=== PATIENT | female | born 1935 | race Caucasian/White ===

== ENCOUNTER 2016-10-02 08:43 | Emergency (ER) | payer MEDICARE, BC ==
[2016-10-02] MEDS ORDERED: Sodium Chloride 0.9% 2.5 ML Syringe FLUSH PRN (08:51)
[2016-10-02] MEDS ORDERED: Sodium Chloride 0.9% 10 ML Syringe FLUSH PRN (08:51)
[2016-10-02] MEDS ORDERED: Insulin Regular, Human 100 Units/ML 10 ML Vial ONE (09:13)
--- NOTE | 2016-10-02 09:16 | EDM.PDOC ---
ED HPI GENERAL MEDICAL PROBLEM - General Chief Complaint: Neuro Symptoms/Deficits Stated Complaint: UNK Time Seen by Provider: 10/02/16 08:43 - History of Present Illness INITIAL COMMENTS - FREE TEXT/NARRATIVE: HISTORY AND PHYSICAL: History of present illness: Patient is an 81-year-old female with a known history of hypertension hypercholesterolemia end-stage renal disease pacemaker and A. fib who presents from renal dialysis after having a prolonged episode of altered mental status. According to the dialysis nurse when she presented to dialysis she was her usual self and they started her run. She's been having issues with her left forearm fistula so they were not able to complete her run and as they were de- accessing her she seemed to have a syncopal event. According to the dialysis nurse this is not unusual for her but usually bounces back relatively quickly. We observed her for 10 minutes and she did not seem to be more responsive so they brought her here to the ED. According to the nurses she was supposed to go to [place] [facility] tomorrow to have her dialysis fistula revised. On arrival to the ED the patient was unresponsive to voice and painful stimuli but was breathing spontaneously and a blood pressure and pulse. In light of her presentation and inability to respond I was unable to get any history from her. Her chart was with her giving me all of her medications and most of her history. As she is presenting with an acute neurologic event we planned to bring her to CT but in light of her tenuous airway we decided that we were going to intubate prior to going to CT. In the process of her parents intubate her the patient lost her pulse and a code was called. Prior to me into giving the patient I did talk to daughter about how far the resuscitation ago and she stated to me that she wanted everything done. Please see below for course of events in the ED Review of systems: As per history of present illness and below otherwise all systems reviewed and negative. Past medical history: As per history of present illness and as reviewed below otherwise noncontributory. Surgical history: As per history of present illness and as reviewed below otherwise noncontributory. Social history: No reported history of drug or alcohol abuse. Family history: As per history of present illness and as reviewed below otherwise noncontributory. Physical exam: Please note this physical exam was her initial exam on arrival to the ED General: Well-developed frail female who looks somewhat sallow in color and is unresponsive but breathing spontaneously. Vital signs have been noted by me and triage. HEENT: Atraumatic, normocephalic, pupils midrange and nonreactive negative for scleral icterus, or conjunctiva were somewhat pale mucous membranes tacky, throat clear, neck supple, nontender, trachea midline. Lungs: Clear to auscultation but diminished breath sounds in the bases and there was some abdominal work or breathing, breath sounds equal bilaterally, chest nontender. Pacemaker is appreciated in the left chest wall area Heart: S1S2, regular, heart sounds are very distant so further analysis was difficult Abdomen: Soft, nondistended, nontender. It was rotund and bowel sounds are hypoactive Negative for masses or hepatosplenomegaly. Pelvis: Stable nontender. Genitourinary: Deferred. Rectal: Deferred. Extremities: Atraumatic, negative for cords but there is bilateral pitting pedal edema to just below the knee with chronic skin changes appreciated. The pitting edema with +2. Neurovascular unremarkable. There is a dressing on the fistula which is in the left anterior humeral soft tissue Neuro: She is not responding to voice or painful stimuli so further assessment is unobtainable. Skin: Chronic skin changes are seen in the lower extremities and turgor is diminished and there is overall a sallow/pale color initiated Diagnostics: EKG chest x-ray CBC CMP INR lactic acid troponin dig level blood cultures Therapeutics: Procedure note: With the patient was noted to be pulseless the ET tube was placed without any premedications by me without complication or event. A 7.0 ET tube was placed with the Mac 3 blade and there was no blood or secretions visualized on the cords. After the tube was placed and cuff inflated CO2 colorimetric was performed and she was in good position. Bilateral breath sounds were auscultated and a portable chest x-ray was performed and reviewed by me. Once the patient was noted to be pulseless CPR was immediately started. The ET tube was placed without any sedation by me. Epinephrine and atropine were given as well as calcium and bicarbonate. Please see code notes for further medications which also included an amp of D50 and insulin. Throughout the course of the code patient regained her pulse on 2 occasions but was unable to maintain it. An epi-drip was ordered and started. At one point the patient was noted to be in V. fib and was defibrillated. Patient was noted after this did not have a pulse and CPR was restarted. Daughter and son-in-law as well as granddaughter were at bedside throughout the majority of this code and were visualizing the events. I discussed with them on several occasions how far we will be attempting this resuscitation. Dr. Larson at [facility] was contacted at 09 and accepted the patient for transfer and the flight team had come to the ER. While we were attempting to ventilate the patient copious amount of blood which was bright red was coming out of the ET tube and it became more difficult to bag the patient. After the defibrillation we were unable to regain a pulse and termination of efforts was discussed with the family and the code was called at 05 04. I discussed with the family that it is unclear exactly what happened but I would assume that in light of the bleeding from the ET tube I would be concerned about an elevated INR, hyperkalemia, sepsis, acute hemorrhagic stroke as well as acute cardiac event. we attempted to temporize the potential problems that we could but we were unsuccessful. Labs were sent throughout the code as well as a portable chest x-ray EKG and those tests will be reviewed by me when they are available but throughout the code only the EKG was available and no lab tests were available. The hemodialysis nurse had said that they had sent a potassium prior to the patient's de-access but the lab stated that that blood work was hemolyzed and we did not have a potassium level on that. Impression: Cardiopulmonary arrest rule out Acute catastrophic neurologic event Definitive disposition and diagnosis as appropriate pending reevaluation and review of above. - Related Data Allergies Allergy/AdvReac Type Severity Reaction Status Date / Time No Known Allergies Allergy Verified 07/30/16 17:21 Home Meds: Home Meds B Complex & C No.20/Folic Acid [Nephrocaps Softgel] 1 cap PO DAILY 06/24/14 [ History] Digoxin [Digox] 125 mcg PO BRK 06/24/14 [History] Isosorbide Mononitrate [Isosorbide Mononitrate ER] 15 mg PO BRK 06/24/14 [ History] Pyridoxine HCl [Vitamin B-6] 25 mg PO DAILY 06/24/14 [History] Warfarin Sodium [Jantoven] 2.5 mg PO [id number] 01/15/15 [History] Warfarin Sodium [Jantoven] 5 mg PO MOTH 01/15/15 [History] Calcium Carbonate [Calcium] 500 mg PO DAILY 01/25/16 [History] Sevelamer Carbonate [Renvela] 800 mg PO DAILY 01/25/16 [History] hydrOXYzine HCl [Atarax] 10 mg PO DAILY PRN 01/25/16 [History] Metoprolol Tartrate 50 mg PO BID 07/31/16 [History] Midodrine 10 mg PO MOWEFR PRN 07/31/16 [History] atorvaSTATin [Lipitor] 20 mg PO BEDTIME 07/31/16 [History] Levofloxacin [Levaquin] 500 mg PO Q48H #3 tablet 08/03/16 [Rx] Past Medical History HEENT History: Reports: Cataract Other HEENT History: wears glasses Cardiovascular History: Reports: Afib, High cholesterol, Hypertension Respiratory History: Reports: Asthma Gastrointestinal History: Reports: Hiatal hernia Genitourinary History: Reports: Renal disease Other Genitourinary History: born with one kidney, 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 [employer] History: Reports: None Other OB/BYN History: polyps in uterus Musculoskeletal History: Reports: None Neurological History: Reports: CVA Other Neuro History: had a stroke many years ago, no residual Psychiatric History: Reports: None Endocrine/Metabolic History: Reports: None Hematologic History: Reports: None Immunologic History: Reports: None Oncologic (Cancer) History: Reports: None Dermatologic History: Reports: None - Infectious Disease History Infectious Disease History: Reports: Chicken pox, Measles, Mumps, Shingles - Past Surgical History HEENT Surgical History: Reports: Cataract surgery Cardiovascular Surgical History: Reports: Pacer Social & Family History - Family History Family Medical History: Noncontributory - Tobacco Use Smoking Status *Q: Never Smoker Second Hand Smoke Exposure: No - Caffeine Use Caffeine Use: Reports: Coffee, Soda - Alcohol Use Days Per Week of Alcohol Use: 0 - Recreational Drug Use Recreational Drug Use: No Drug Use in Last 12 Months: No ED ROS GENERAL - Review of Systems Review Of Systems: ROS reveals no pertinent complaints other than HPI. ED EXAM, GENERAL - Physical Exam Exam: See Below Course - Orders/Labs/Meds Orders: Active Orders 24 hr Category Date Time Status Blood Glucose Check, Bedside [RC] ONETIME Care 10/02/16 08:52 Active Cardiac Monitoring [RC] . DIRECTED Care 10/02/16 08:51 Active EKG Documentation Completion [RC] STAT Care 10/02/16 08:51 Active Oxygen Therapy, ED [RC] ASDIRECTED Care 10/02/16 08:51 Active Pulse Oximetry [RC] ASDIRECTED Care 10/02/16 08:51 Active Chest 1V Frontal [CR] Stat Exams 10/02/16 08:52 Taken Head wo Cont [CT] Stat Exams 10/02/16 08:52 Ordered CBC WITH AUTO DIFF [HEME] Stat Lab 10/02/16 09:11 Results COMPREHENSIVE METABOLIC PN,CMP [CHEM] Stat Lab 10/02/16 09:11 Received CULTURE BLOOD [BC] Stat Lab 10/02/16 08:53 Ordered CULTURE BLOOD [BC] Stat Lab 10/02/16 08:53 Ordered DIGOXIN [CHEM] Stat Lab 10/02/16 09:11 Received INR,PT,PROTHROMBIN TIME [COAG] Stat Lab 10/02/16 08:51 Ordered EPINEPHrine [Adrenalin 1:1000] 1 mg Med 10/02/16 09:30 Active Dextrose 5% in Water 99 ml IV TITRATE Sodium Chloride 0.9% [Saline Flush] Med 10/02/16 08:51 Active 10 ml FLUSH ASDIRECTED PRN Sodium Chloride 0.9% [Saline Flush] Med 10/02/16 08:51 Active 2.5 ml FLUSH ASDIRECTED PRN Blood Culture x2 Reflex Set [OM.PC] Stat Oth 10/02/16 08:52 Ordered Saline Lock Insert [OM.PC] Stat Oth 10/02/16 08:51 Ordered Medication Orders Epinephrine HCl 1 mg/ Dextrose (/Water) 100 mls @ 12 mls/hr IV TITRATE MARIO; 2 MCG/MIN PRN Reason: Protocol Sodium Chloride (Saline Flush) 10 ml FLUSH ASDIRECTED PRN PRN Reason: Keep Vein Open Sodium Chloride (Saline Flush) 2.5 ml FLUSH ASDIRECTED PRN PRN Reason: Keep Vein Open Labs: Laboratory Tests 10/02/16 10/02/16 10/02/16 Range/Units 09:11 09:11 09:11 WBC 19.84 H (4.0-11.0) K/uL RBC 2.79 L (4.30-5.90) M/uL Hgb 9.6 L (12.0-16.0) g/dL Hct 30.6 L (36.0-46.0) % MCV 109.7 H (80.0-98.0) fL MCH 34.4 H (27.0-32.0) pg MCHC 31.4 (31.0-37.0) g/dL RDW Std Deviation 68.2 H (28.0-62.0) fl RDW Coeff of Chantal 17 H (11.0-15.0) % Plt Count 152 (150-400) K/uL MPV 10.00 (7.40-12.00) fL Add Manual Diff YES Nucleated RBC % 0.0 /100WBC Nucleated RBCs # 0 K/uL Lactate 5.5 H (0.20-2.00) mmol/L Troponin I < 0.10 (0.0-0.29) NG/ML Meds: Medications Generic Name Dose Route Start Last Admin Trade Name Freq PRN Reason Stop Dose Admin Epinephrine HCl 1 mg/ Dextrose 100 mls @ 12 mls/hr 10/02/16 09:30 /Water IV TITRATE MARIO Protocol 2 MCG/MIN Sodium Chloride 10 ml 10/02/16 08:51 Saline Flush FLUSH ASDIRECTED PRN Keep Vein Open Sodium Chloride 2.5 ml 10/02/16 08:51 Saline Flush FLUSH ASDIRECTED PRN Keep Vein Open Discontinued Medications Generic Name Dose Route Start Last Admin Trade Name Freq PRN Reason Stop Dose Admin Insulin Human Regular Confirm 10/02/16 09:13 Novolin R Administered 10/02/16 09:14 Dose 1,000 unit .ROUTE .STK-MED ONE Departure - Departure Time of Disposition: 09:30 Disposition: 20 Condition: critical Clinical Impression: Cardiopulmonary arrest Forms: ED Department Discharge - My Orders Last 24 Hours: My Active Orders 10/02/16 08:51 Cardiac Monitoring [RC] . DIRECTED EKG Documentation Completion [RC] STAT Oxygen Therapy, ED [RC] ASDIRECTED Pulse Oximetry [RC] ASDIRECTED INR,PT,PROTHROMBIN TIME [COAG] Stat Sodium Chloride 0.9% [Saline Flush] 10 ml FLUSH ASDIRECTED PRN Sodium Chloride 0.9% [Saline Flush] 2.5 ml FLUSH ASDIRECTED PRN Saline Lock Insert [OM.PC] Stat 10/02/16 08:52 Blood Glucose Check, Bedside [RC] ONETIME Chest 1V Frontal [CR] Stat Head wo Cont [CT] Stat Blood Culture x2 Reflex Set [OM.PC] Stat 10/02/16 08:53 CULTURE BLOOD [BC] Stat CULTURE BLOOD [BC] Stat 10/02/16 09:11 CBC WITH AUTO DIFF [HEME] Stat COMPREHENSIVE METABOLIC PN,CMP [CHEM] Stat DIGOXIN [CHEM] Stat 10/02/16 09:30 EPINEPHrine [Adrenalin 1:1000] 1 mg Dextrose 5% in Water 99 ml IV TITRATE - Assessment/Plan Last 24 Hours: My Active Orders 10/02/16 08:51 Cardiac Monitoring [RC] . DIRECTED EKG Documentation Completion [RC] STAT Oxygen Therapy, ED [RC] ASDIRECTED Pulse Oximetry [RC] ASDIRECTED INR,PT,PROTHROMBIN TIME [COAG] Stat Sodium Chloride 0.9% [Saline Flush] 10 ml FLUSH ASDIRECTED PRN Sodium Chloride 0.9% [Saline Flush] 2.5 ml FLUSH ASDIRECTED PRN Saline Lock Insert [OM.PC] Stat 10/02/16 08:52 Blood Glucose Check, Bedside [RC] ONETIME Chest 1V Frontal [CR] Stat Head wo Cont [CT] Stat Blood Culture x2 Reflex Set [OM.PC] Stat 10/02/16 08:53 CULTURE BLOOD [BC] Stat CULTURE BLOOD [BC] Stat 10/02/16 09:11 CBC WITH AUTO DIFF [HEME] Stat COMPREHENSIVE METABOLIC PN,CMP [CHEM] Stat DIGOXIN [CHEM] Stat 10/02/16 09:30 EPINEPHrine [Adrenalin 1:1000] 1 mg Dextrose 5% in Water 99 ml IV TITRATE
[2016-10-02] MEDS ORDERED: EPINEPHrine 1 MG in Dextrose 5% in Water 99 ML IV SCH ×2 (09:30)
--- NOTE | 2016-10-02 09:34 | CR ---
EXAMINATION: Portable chest radiograph. HISTORY: Shortness of breath. FINDINGS: The trachea is midline. There is an endotracheal tube could position above the osvaldo. Hazy bilatera l pulmonary infiltrates are noted. Heart is normal in size. Mild left basilar atelectasis and/or inf iltrate. A trace pleural effusion is not excluded. There is a left-sided pacemaker noted. Stents are noted within the left Arm. No pneumothorax. Osseous structures appear unremarkable. IMPRESSION: 1. Endotracheal tube in good position. 2. Hazy bilateral pulmonary infiltrates, this could represent edema, or pneumonia.
[2016-10-02 09:41] LABS: CHLORIDE,CL 104 mmol/L (98-110); SODIUM,NA 135 mmol/L (136-146)
--- NOTE | 2016-10-02 09:44 | PCM.SN ---
- Free Text/Narrative Note: Called for "stroke code"/"code blue" in EOD. Pt unresponsive and in process of being intubated by Dr. Cruz. Placement successful and confirmed with ETCO2 sensor and bilateral breath sounds. Code in process. Pt began having large returns of bloody sputum from ETT. Anesthesia assisting with ventilation. Pt suctioned intermittently with manual bag ventilation. Family brought to bedside while code ongoing. Bleeding to lungs increased during course of code. Code called after discussed with family by Dr. Cruz.
[2016-10-02] MEDS ORDERED: Atropine 0.1 MG/ML 10 ML Syringe IV ONE (15:03)
[2016-10-02] MEDS ORDERED: Calcium Chloride 10% 1 GM/10 ML Syringe IV ONE (15:04)
[2016-10-02] MEDS ORDERED: 50% Dextrose in Water 50 ML Syringe IV ONE (15:05)
[2016-10-02] MEDS ORDERED: EPINEPHrine 1:10,000 1 MG/10 ML Syringe IV ONE (15:06)
[2016-10-02] MEDS ORDERED: Sodium Bicarbonate 8.4% 50 MEQ/50 ML Syringe IV ONE (15:07)
[2016-10-02] MEDS ORDERED: Amiodarone 150 MG/3 ML SDV IV ONE (15:09)
[2016-10-02] MEDS ORDERED: Flumazenil 0.1 MG/ML 5 ML MDV IV ONE (15:10)
[2016-10-02] MEDS ORDERED: Atropine 0.1 MG/ML 10 ML Syringe IVPUSH ONE (17:41)
[2016-10-02] MEDS ORDERED: Calcium Chloride 10% 1 GM/10 ML Syringe IVPUSH ONE ×2 (17:51→17:52)
[2016-10-02] MEDS ORDERED: Sodium Bicarbonate 8.4% 50 MEQ/50 ML Syringe IVPUSH ONE ×2 (17:53→18:06)
[2016-10-02] MEDS ORDERED: EPINEPHrine 1:10,000 1 MG/10 ML Syringe IVPUSH ONE ×2 (17:53)
[2016-10-02] MEDS ORDERED: Insulin Regular, Human 100 Units/ML 10 ML Vial IVPUSH ONE (18:08)
[2016-10-02] MEDS ORDERED: 50% Dextrose in Water 50 ML Syringe IVPUSH ONE (18:17)
== END 2016-10-02 11:12 | disposition expired ==
LOC: MW.ED 08:43
DX: I46.9 Cardiac arrest, cause unspecified (principal); I48.91 Unspecified atrial fibrillation; E78.00 Pure hypercholesterolemia, unspecified; I10 Essential (primary) hypertension; J45.909 Unspecified asthma, uncomplicated; Z86.73 Personal history of transient ischemic attack (TIA), and cerebral infarction without residual deficits; Z98.49 Cataract extraction status, unspecified eye; Z79.01 Long term (current) use of anticoagulants; Z79.899 Other long term (current) drug therapy
CPT/HCPCS: 31500; 36415; 71010; 80053; 80162; 83605; 84484; 85025; 92950; 93005; 96374; 96375; 99291; J0171; J0282; J0461; J7060